=== PATIENT | female | born 1985 | race Caucasian/White ===

== ENCOUNTER → 2020-04-05 | Outpatient (CLI) | payer OTHER, SELFPAY ==
[2020-04-10 09:33] LABS: Alternaria tenuis <0.10 kU/L (Class 0); Ash, White 0.11 kU/L (Class 0/I); Aspergillus fumigatus <0.10 kU/L (Class 0); Bermuda Grass 0.11 kU/L (Class 0/I); Birch <0.10 kU/L (Class 0); Black Walnut 0.15 kU/L (Class 0/I); Cat Hair / Dander,Stand <0.10 kU/L (Class 0); Cedar, Mountain 0.13 kU/L (Class 0/I); Cladosporium herbarum <0.10 kU/L (Class 0); Cockroach, American 0.11 kU/L (Class 0/I); Cottonwood 0.11 kU/L (Class 0/I); D farinae Mite <0.10 kU/L (Class 0); D pteronyssinus <0.10 kU/L (Class 0); Dog Epithelia <0.10 kU/L (Class 0); Elm, American White 0.11 kU/L (Class 0/I); Immunoglobulin E 26 IU/mL (6-495); Mulberry, White <0.10 kU/L (Class 0); Oak, White 0.14 kU/L (Class 0/I); Pecan <0.10 kU/L (Class 0); Penicillium Notatum <0.10 kU/L (Class 0); Pigweed, Rough <0.10 kU/L (Class 0); Ragweed, Short/Common 0.14 kU/L (Class 0/I); Russian Thistle <0.10 kU/L (Class 0); Sheep Sorrel 0.13 kU/L (Class 0/I); Timothy Grass 0.11 kU/L (Class 0/I)
[2020-04-10 09:34] LABS: Mouse Urine <0.10 kU/L (Class 0)
[2020-04-19 17:04] LABS: Peach <0.10 kU/L (Class 0)
== END | disposition home or self-care (01) ==
PROVIDERS: Referring Provider Otolaryngology; Visit Provider Otolaryngology
DX: T78.40XA Allergy, unspecified, initial encounter (principal)
CPT/HCPCS: 36415; 82785; 86003